=== PATIENT | male | born 1985 | race Asian ===

== ENCOUNTER 2017-12-13 22:27 | Emergency (ER) | payer OTHER ==
[~2017-12-13] VITALS: Ht 180.3 cm; Wt 98.4 kg
[2017-12-14 01:49] VITALS: BP 147/95
== END 2017-12-13 23:00 | disposition home or self-care (01) ==
LOC: FSED 22:27
DX: M54.5 Low back pain (principal); S39.012A Strain of muscle, fascia and tendon of lower back, initial encounter